=== PATIENT | female | born 1950 | race Two or more races ===

== ENCOUNTER 2021-05-29 10:25 | Outpatient (CLI) | payer OTHER | END 2021-05-29 10:45 | disposition home or self-care (01) | LOC: PPH VACUNA 10:25 | PROVIDERS: ATTEND Emergency Medicine Pediatric Emergency Medicine | DX: Z23 Encounter for immunization (principal) ==

== ENCOUNTER 2021-12-10 08:00 | Outpatient (CLI) | payer OTHER | END 2021-12-10 08:30 | disposition home or self-care (01) | LOC: PPH VACUNA 08:00 | PROVIDERS: ATTEND Emergency Medicine Pediatric Emergency Medicine | DX: Z23 Encounter for immunization (principal) ==

== ENCOUNTER 2022-07-29 14:02 | Outpatient (CLI) | payer OTHER | END 2022-07-29 14:12 | disposition home or self-care (01) | LOC: PPH VACUNA 14:02 | PROVIDERS: ATTEND Emergency Medicine Pediatric Emergency Medicine | DX: Z23 Encounter for immunization (principal) ==